=== PATIENT | female | born 1995 | race African-American/Black ===

== ENCOUNTER 2017-02-15 16:01 | Emergency (ER) | payer MEDICARE, MEDICAID ==
[~2017-02-15] VITALS: Ht 160 cm; Wt 59.0 kg
[~2017-02-15 16:01] MED LIST: ACETAMINOPHEN500 M3 ORAL; ADVAIR 100-501 EACH INH; ADVAIR 500-501 EACH INH; ALBUTEROL SULF8.5 GM INH; AZITHROMYCIN250 MG ORAL; CORTISONE14 GM TP; CYCLOBENZAPRINE10 MG ORAL; DIFLUCAN100 MG ORAL; FLOVENT DISKU250 MC1 IH; FLOVENT DISKU250 MC1 INH; FLOVENT2 PUFF2 INH; IBUPROFEN600 MG ORAL; KEFLEX500 MG ORAL; KENALOG 0.5% CR15 GM APPLIC; NKM; NORCO 5-325 TA1 EACH ORAL; PERMETHRIN60 GM TOPIC; POLYTRIM OP SOL10 ML OPHTHALM; PREDNISONE20 MG ORAL; TESSALON PERLE100 M2 ORAL; VALIUM5 MG ORAL; ZITHROMAX500 MG ORAL
[2017-02-15 18:08] LABS: KETONES,URINE 1+ (NEGATIVE); LEUKOCYTE ESTERASE ,URINE 2+ (NEGATIVE); NITRITE,URINE NEGATIVE (NEGATIVE); PH,URINE 6 (4.5-8.0); PROTEIN,URINE 2+ (NEGATIVE); UROBILINOGEN,URINE 1 MG/DL (0.0-1.0)
[2017-02-15 18:09] LABS: APPEARANCE,URINE SLIGHTLY CLOUDY
[2017-02-15 18:18] LABS: RBC,URINE TNTC /HPF (0 - 2)
[2017-02-15 18:19] LABS: BACTERIA,URINE FEW /HPF; SQUAMOUS EPITHELIAL CELL,UR MODERATE /LPF (NONE/OCC)
[2017-02-15] MEDS ORDERED: CEPHALEXIN500 MG ORAL (18:25)
[2017-02-15] MEDS ORDERED: NAPROXEN500 M1 ORAL (18:25)
[2017-02-15] MEDS ORDERED: ZOFRAN ODT8 MG ORAL (18:25)
--- NOTE | 2017-02-15 18:26 | Emergency Room Report ---
History of Present Illness General Chief Complaint: Abdominal Pain Source: Patient Present Illness HPI 21 y/o female c/o pelvic pain x 2-3 days. Assoc sxs include pelvic pain that is worse with periods. States periods last for 6 days and are regular and has monogamous intercourse with male partner. States she has pelvic pressure, bilateral low back pain, and nausea. Took 400mg ibuprofen w/o improvement of sxs. Denies any current f/c/d, back pain, neck pain, photophobia, phonophobia, vag discharge, heavy / abnormal vag bleeding, CP, SOB or headache. Allergies: Coded Allergies: No Known Allergies (Unverified , 03/03/13) Patient History Past Medical History: see triage record Past Surgical History: none Pertinent Family History: none Last Menstrual Period: on period Now: No Immunizations: UTD Reviewed Nursing Documentation: PMH: Agreed, PSxH: Agreed Nursing Documentation-PMH Past Medical History: No History, Except For Hx Cardiac Problems: No Hx Asthma: Yes Hx Cancer: No Hx Gastrointestinal Problems: No - Cholecystectomy in 2010, Lap D&C in 03/2015 Hx Neurological Problems: No Review of Systems All Other Systems: negative except mentioned in HPI Physical Exam Vital Signs Date Time Temp Pulse Resp B/P Pulse Ox O2 Delivery O2 Flow Rate FiO2 02/15/17 16:42 98.2 80 16 108/75 99 Room Air Sp02 EP Interpretation: reviewed, normal General Appearance: no apparent distress, alert, GCS 15, non-toxic Head: normocephalic, atraumatic ENT: normal ENT inspection Respiratory: chest non-tender, lungs clear, normal breath sounds, speaking full sentences Cardiovascular #1: regular rate, rhythm, no edema Gastrointestinal: normal bowel sounds, soft, non-distended, no guarding, no rebound, tenderness - suprapubic Genitourinary: CVA tenderness (R), CVA tenderness (L) Neurologic: alert, oriented x3, responsive, motor strength/tone normal, sensory intact, speech normal Psychiatric: judgement/insight normal, memory normal, mood/affect normal, no suicidal/homicidal ideation Skin: normal color, no rash, warm/dry, well hydrated Lymphatic: no adenopathy Medical Decision Making PA Attestation Dr. Tavarez is my supervising physician with whom patient management has been discussed with. Diagnostic Impression: Primary Impression: UTI (urinary tract infection) Qualified Codes: N30.01 - Acute cystitis with hematuria Additional Impression: Abdominal pain in female ER Course Pt. presents to the ED c/o abdominal pain. Ddx considered but are not limited to viral syndrome, , appendicitis, diverticulitis, constipation, gastroenteritis, abdominal hernia, pancreatitis, cholecystitis, nephrolithiasis, and ovarian torsion. Vital signs: are WNL, pt. is afebrile H&PE are most consistent with uti ORDERS: UA, Urine Preg ED INTERVENTIONS: [place] 5. DISCHARGE: At this time pt. is stable for d/c to home. Will provide printed patient care instructions, and any necessary prescriptions. Care plan and follow up instructions have been discussed with the patient prior to discharge. Laboratory Tests Test 02/15/17 17:30 Urine Color Brown Urine Appearance Slightly cloudy Urine pH 6 (4.5-8.0) Urine Specific [place] 1.015 (1.005-1.035) Urine Protein 2+ (NEGATIVE) H Urine Glucose (UA) Negative (NEGATIVE) Urine Ketones 1+ (NEGATIVE) H Urine Occult Blood 5+ (NEGATIVE) H Urine Nitrite Negative (NEGATIVE) Urine Bilirubin Negative (NEGATIVE) Urine Urobilinogen 1 MG/DL (0.0-1.0) H Urine Leukocyte Esterase 2+ (NEGATIVE) H Urine RBC Tntc /HPF (0 - 2) H Urine WBC 2-4 /HPF (0 - 2) Urine Squamous Epithelial Cells Moderate /LPF (NONE/OCC) H Urine Bacteria Few /HPF (NONE) Urine HCG, Qualitative Negative Last Vital Signs Date Time Temp Pulse Resp B/P Pulse Ox O2 Delivery O2 Flow Rate FiO2 02/15/17 16:42 98.2 80 16 108/75 99 Room Air Status: unchanged Disposition: HOME, SELF-CARE Condition: Stable Scripts Ondansetron Odt* (ZOFRAN ODT*) 8 Mg Tab.rapdis 8 MG ORAL Q8HR Y for Nausea & Vomiting, #20 TAB Prov: SABRY,TAMEEM P.A. 02/15/17 Naproxen* (NAPROXEN*) 500 Mg Tablet.dr 500 MG ORAL TWICE A DAY for 10 Days, #20 TAB Prov: SABRY,TAMEEM P.A. 02/15/17 Cephalexin* (KEFLEX*) 500 Mg Capsule 500 MG ORAL EVERY 12 HOURS, #14 CAP 0 Refills Prov: GAGE MARROQUIN 02/15/17 Referrals: NON PHYSICIAN (PCP) Patient Instructions: Dysmenorrhea, Urinary Tract Infection Additional Instructions: Take medication as directed. Patient informed that Azo (Pyridium) will make your urine turn orange and to use for urinary pain. Drink plenty of cranberry juice and have some pelvic rest. Return to clinic or PCP sooner if symptoms worsen or do not improve. Go to ER if you experience any adverse reactions to medication or if you start developing back pain or fever.Take medication as directed. Patient instructed to stay well hydrated and to use a liquid diet and then progress to soft bland diet as tolerated before reverting back to a regular diet. Patient Education was given to the patient. Patient advised if irreretractible pain, rectal bleeding, or no BM to go to ER immediately. GAGE MARROQUIN Feb 15, 2017 18:26
[2017-02-15] MEDS ORDERED: Norco 5mg/325mg tab ORAL ONE (18:30)
[2017-02-15 18:40] VITALS: BP 133/77
== END 2017-02-15 18:40 | disposition home or self-care (01) ==
LOC: EMR 16:45
DX: N30.01 Acute cystitis with hematuria (principal); R10.9 Unspecified abdominal pain; J45.909 Unspecified asthma, uncomplicated; Z90.49 Acquired absence of other specified parts of digestive tract
CPT/HCPCS: 81003; 81025; 99284

== ENCOUNTER 2017-03-13 15:58 | Emergency (ER) | payer MEDICAID, MEDICARE ==
[~2017-03-13] VITALS: Ht 160 cm; Wt 59.0 kg
[~2017-03-13 15:58] MED LIST changes: +CEPHALEXIN500 MG ORAL; +NAPROXEN500 M1 ORAL; +ZOFRAN ODT8 MG ORAL
[2017-03-13] MEDS ORDERED: PHENAZOPYRIDIN200 MG ORAL (16:14)
[2017-03-13] MEDS ORDERED: NITROFURANTOIN100 MG PO (16:14)
[2017-03-13 16:21] VITALS: BP 113/71
--- NOTE | 2017-03-13 16:58 | Emergency Room Report ---
History of Present Illness General Chief Complaint: Female Urogenital Problems Source: Patient Present Illness HPI 21 YO Female presents to the ED c/o Frequency, dysuria, and urgency x2 weeks. Patient states that she was previously prescribed Keflex for which she did not take consistently and ended up being evaluated at an alternate emergency department which prescribed her Macrobid and pyridium. Patient states that her symptoms have not improved. Patient has been taking antibiotics. Pt has pill containers with her and she has 12 pills remaining from qty of 14. Patient denies fevers, chills. She was tested for STDs for which she had all negative results. Patient denies low back pain. Patient reports anterior lower, pressure with the urge to urinate. She denies rashes, itching, lesions or swollen palpable lymph nodes. she denies history of STI. Pt denies . Patient states that she just started her menstrual cycle today. Pt has ex of ectopic . Patient denies abdominal pain/tenderness, constipation or diarrhea. Denies nausea or vomiting. Denies CP, Palpitations, LOC, AMS, dizziness, Changes in Vision, Sensation, paresthesias, or a sudden severe headache. Allergies: Coded Allergies: No Known Allergies (Unverified , 03/03/13) Patient History Past Medical History: see triage record Past Surgical History: none Pertinent Family History: none Last Menstrual Period: Current Now: No Immunizations: UTD Reviewed Nursing Documentation: PMH: Agreed, PSxH: Agreed Nursing Documentation-PMH Hx Cardiac Problems: No Hx Asthma: Yes Hx Cancer: No Hx Gastrointestinal Problems: No - Cholecystectomy in 2010, Lap D&C in 03/2015 Hx Neurological Problems: No Review of Systems All Other Systems: negative except mentioned in HPI Physical Exam Vital Signs Date Time Temp Pulse Resp B/P Pulse Ox O2 Delivery O2 Flow Rate FiO2 03/13/17 16:06 98.1 16 16 109/76 99 Room Air Sp02 EP Interpretation: reviewed, normal General Appearance: no apparent distress, alert, GCS 15, non-toxic Head: normocephalic, atraumatic Eyes: bilateral eye PERRL, bilateral eye normal inspection ENT: hearing grossly normal, normal pharynx, no angioedema, normal voice Neck: full range of motion Respiratory: lungs clear, normal breath sounds, speaking full sentences Cardiovascular #1: regular rate, rhythm Gastrointestinal: normal bowel sounds, non tender, soft, no guarding, no rebound Rectal: deferred Genitourinary: normal inspection, no CVA tenderness, ext genitalia/vag normal, other - mild midline bladder/uterine tenderness, no adnexal ttp. Musculoskeletal: gait/station normal, normal range of motion Neurologic: alert, oriented x3, responsive, speech normal Skin: normal color, no rash, warm/dry, well hydrated Lymphatic: no adenopathy Medical Decision Making PA Attestation Dr. Garza is my supervising Physician whom patient management has been discussed with. Diagnostic Impression: Primary Impression: UTI (urinary tract infection) Qualified Codes: N30.01 - Acute cystitis with hematuria Additional Impression: Non compliance w medication regimen ER Course 21 YO Female presents to the ED c/o Frequency, dysuria, and urgency x2 weeks. Patient states that she was previously prescribed Keflex for which she did not take consistently and ended up being evaluated at an alternate emergency department which prescribed her Macrobid and pyridium. Patient states that her symptoms have not improved. Patient has been taking antibiotics. Pt has pill containers with her and she has 12 pills remaining from qty of 14. Patient denies fevers, chills. She was tested for STDs for which she had all negative results. Patient denies low back pain. Patient reports anterior lower, pressure with the urge to urinate. She denies rashes, itching, lesions or swollen palpable lymph nodes. she denies history of STI. Pt denies . Patient states that she just started her menstrual cycle today. Pt has ex of ectopic . Patient denies abdominal pain/tenderness, constipation or diarrhea. Denies nausea or vomiting. Denies CP, Palpitations, LOC, AMS, dizziness, Changes in Vision, Sensation, paresthesias, or a sudden severe headache. Ddx considered but are not limited to UTi , Pyelo, STI, Stone, Cystitis Vital signs: are WNL, pt. is afebrile H&PE are most consistent with UTI ORDERS: - UA labs are attached : Nitrite positive with few bacteria indicative for UTI, occult blood present which is consistent with pt. currently on her period. -Urine Hcg: Negative ED INTERVENTIONS: None required at this time. PT. EDUCATION ON TREATMENT COMPLIANCE Medication non-compliance: Pt. states she has been taking Macrobid, Pt. was rx'd qty 14 , I counted 12 to be in the bottle... d/w pt. the importance of taking the antibiotics as directed. d/w pt. that antibiotics are the treatment, and that she should not expect her symptoms to resolve if she is not following treatment plan. d/w pt. proper follow up instructions as well. DISCHARGE: At this time pt. is stable for d/c to home with currently prescribed antibiotic, and pcp follow up instructions. Will provide printed patient care instructions, and any necessary prescriptions. Care plan and follow up instructions have been discussed with the patient prior to discharge. Labs Test 03/13/17 16:42 Urine Color Red Urine Appearance Slightly cloudy Urine pH 5 (4.5-8.0) Urine Specific [place] 1.010 (1.005-1.035) Urine Protein 3+ (NEGATIVE) Urine Glucose (UA) Negative (NEGATIVE) Urine Ketones Negative (NEGATIVE) Urine Occult Blood 3+ (NEGATIVE) Urine Nitrite Positive (NEGATIVE) Urine Bilirubin 3+ (NEGATIVE) Urine Ictotest Negative Urine Urobilinogen 8 MG/DL (0.0-1.0) Urine Leukocyte Esterase Negative (NEGATIVE) Urine RBC 5-10 /HPF (0 - 2) Urine WBC 2-4 /HPF (0 - 2) Urine Squamous Epithelial Cells Few /LPF (NONE/OCC) Urine Bacteria Few /HPF (NONE) Urine HCG, Qualitative Negative Last Vital Signs Date Time Temp Pulse Resp B/P Pulse Ox O2 Delivery O2 Flow Rate FiO2 03/13/17 16:21 98.2 76 15 113/71 99 Room Air Disposition: HOME, SELF-CARE Condition: Stable Scripts Nitrofurantoin Monohyd/M-Cryst* (MACROBID 100 MG*) 100 Mg Capsule 100 MG ORAL EVERY 12 HOURS for 5 Days, #10 CAP Prov: Leticia Connolly 03/13/17 Patient Instructions: Urinary Tract Infection Additional Instructions: Take medications as directed. Follow up with a Primary Care Provider in 3-5 days, even if your symptoms have resolved. --Please review list of primary care clinics, if you do not already have a primary care provider Return sooner to ED if new symptoms occur, or current symptoms become worse. - Please note that this Emergency Department Report was dictated using [employer] technology software, occasionally this can lead to erroneous entry secondary to interpretation by the dictation equipment. Leticia Connolly Mar 13, 2017 16:58
[2017-03-13 17:24] LABS: KETONES,URINE NEGATIVE (NEGATIVE); LEUKOCYTE ESTERASE ,URINE NEGATIVE (NEGATIVE); NITRITE,URINE POSITIVE (NEGATIVE); PH,URINE 5 (4.5-8.0); PROTEIN,URINE 3+ (NEGATIVE); UROBILINOGEN,URINE 8 MG/DL (0.0-1.0)
[2017-03-13 17:26] LABS: APPEARANCE,URINE SLIGHTLY CLOUDY
[2017-03-13 17:40] LABS: BACTERIA,URINE FEW /HPF; ICTOTEST NEGATIVE; SQUAMOUS EPITHELIAL CELL,UR FEW /LPF (NONE/OCC)
[2017-03-13] MEDS ORDERED: NITROFURANTOIN100 M2 ORAL (18:06)
[2017-03-13 18:10] VITALS: BP_SYST 113; BP_SYST 116; BP_DIAS 71; BP_DIAS 74
== END 2017-03-13 18:11 | disposition home or self-care (01) ==
LOC: EMR 16:32
DX: N30.01 Acute cystitis with hematuria (principal); Z91.14 Patient's other noncompliance with medication regimen; Z90.49 Acquired absence of other specified parts of digestive tract
CPT/HCPCS: 81003; 81025; 99282